=== PATIENT | male | born 1955 | race Caucasian/White ===

== ENCOUNTER 2016-10-10 19:16 | Emergency (ER) | payer OTHER ==
[~2016-10-10] VITALS: Ht 182.9 cm; Wt 102.2 kg
[~2016-10-10 19:16] MED LIST: ALBUTEROL SULF8.5 GM IH; ANORO ELLIPTA1 EACH IH; ASPIR-LOW81 MG PO; BISOPROLOL-HCT1 EAC2; CELEBREX200 MG PO; COLACE100 MG PO; DIOVAN80 MG PO; DOXYCYCLINE HY100 MG PO; DULERA 200 MCG/13 GM IH; DURAGESIC50 MCG TD; GLIMEPIRIDE1 MG PO; GLIPIZIDE5 MG PO; GLUCOPHAGE1000 MG PO; GLUCOPHAGE500 MG PO; INVOKANA100 MG PO; LEVAQUIN500 MG PO; LEVAQUIN750 MG PO; LORAZEPAM0.5 MG PO; MEDROL DOSEPAK4 MG PO; OXYCODONE-APAP1 EACH; PERCOCET 10/1 TABLET PO; PERCOCET 5/31 TABLET PO; PREDNISONE10 M1 PO; PREDNISONE50 MG PO; PROAIR HFA8.5 GM IH; SPIRIVA1 INHALATI IH; SYMBICORT60 INHALAT IH; VENTOLIN HFA18 GM IH; ZITHROMAX Z-PA250 MG PO; ZITHROMAX250 MG PO
[2016-10-10 20:06] LABS: HEMATOCRIT 38.5 % (38.0-50.0); MCH 32.2 PG (29.0-34.0); MCHC 34.3 G/DL (30.0-36.0); MCV 93.9 FL (86-99); MEAN PLAT.VOLUME 9.8 uM^3 (9.0-12.4); PLATELET COUNT 249 K/uL (156-360); RBC DIS.WIDTH-CV 13.3 % (11.8-14.6); RBC DIS.WIDTH-SD 45.9 % (39-53); WHITE BLOOD COUNT 15.3 K/uL (4.1-10.2)
[2016-10-10 20:14] LABS: CHLORIDE 106 mEq/L (99-109); POTASSIUM 4.2 mEq/L (3.7-5.4); SODIUM 141 mEq/L (136-147)
[2016-10-10 20:15] LABS: GLUCOSE 217 mg/dL (70-99)
[2016-10-10 20:17] LABS: ANION GAP 10 MEQ/L (2-14)
[2016-10-10 20:19] LABS: GFR ESTIMATE (CALCULATED) > 59 mL/min/
[2016-10-10 20:20] LABS: UREA NITROGEN (BUN) 19 mg/dL (9-23)
[2016-10-10] MEDS ORDERED: DOXYCYCLINE HY100 MG PO (21:23)
[2016-10-10 21:31] VITALS: BP 156/80
== END 2016-10-10 21:33 | disposition home or self-care (01) ==
LOC: EME 19:16
DX: J44.0 Chronic obstructive pulmonary disease with (acute) lower respiratory infection (principal); J18.9 Pneumonia, unspecified organism; J45.909 Unspecified asthma, uncomplicated; G89.29 Other chronic pain; E11.9 Type 2 diabetes mellitus without complications; I25.2 Old myocardial infarction; Z87.442 Personal history of urinary calculi; Z98.1 Arthrodesis status; F17.200 Nicotine dependence, unspecified, uncomplicated
CPT/HCPCS: 71020; 80048; 85027; 93005; 99281; 99283

== ENCOUNTER 2017-11-23 11:24 | Emergency (ER) | payer OTHER ==
[~2017-11-23] VITALS: Ht 182.9 cm; Wt 101.6 kg
[2017-11-23 13:25] LABS: HEMOGLOBIN 13.4 G/DL (12.5-16.6); MCH 33.1 PG (29.0-34.0); MCHC 34.4 G/DL (30.0-36.0); MCV 96.3 FL (86-99); PLATELET COUNT 295 K/uL (156-360); RBC DIS.WIDTH-SD 46.3 % (39-53); RED BLOOD COUNT 4.05 M/uL (4.00-5.50); WHITE BLOOD COUNT 8.7 K/uL (4.1-10.2)
[2017-11-23 13:37] LABS: CHLORIDE 105 mEq/L (99-109); POTASSIUM 4.6 mEq/L (3.7-5.4); SODIUM 140 mEq/L (136-147)
[2017-11-23 13:39] LABS: GLUCOSE 173 mg/dL (70-99)
[2017-11-23 13:43] LABS: CREATININE 0.8 mg/dL (0.6-1.3); GFR ESTIMATE (CALCULATED) > 59 mL/min/ (58.99-99999)
[2017-11-23 13:44] LABS: UREA NITROGEN (BUN) 21 mg/dL (9-23)
[2017-11-23] MEDS ORDERED: PREDNISONE20 MG PO (14:46)
[2017-11-23] MEDS ORDERED: PREDNISONE50 MG PO (14:48)
[2017-11-23 15:03] VITALS: BP 143/96
== END 2017-11-23 15:06 | disposition home or self-care (01) ==
LOC: EME 11:24
PROVIDERS: Emergency Medicine
DX: J44.1 Chronic obstructive pulmonary disease with (acute) exacerbation (principal); R00.1 Bradycardia, unspecified; I45.10 Unspecified right bundle-branch block; E11.9 Type 2 diabetes mellitus without complications; I25.2 Old myocardial infarction; F17.200 Nicotine dependence, unspecified, uncomplicated; Z79.891 Long term (current) use of opiate analgesic; Z79.84 Long term (current) use of oral hypoglycemic drugs; Z87.01 Personal history of pneumonia (recurrent); Z87.442 Personal history of urinary calculi; Z98.890 Other specified postprocedural states; Z88.0 Allergy status to penicillin; Z88.6 Allergy status to analgesic agent
CPT/HCPCS: 71045; 80048; 85027; 87040; 93005; 99281; 99284

== ENCOUNTER 2018-03-20 18:52 | Emergency (ER) | payer OTHER ==
[~2018-03-20] VITALS: Ht 182.9 cm; Wt 102.3 kg
[~2018-03-20 18:52] MED LIST changes: +PREDNISONE20 MG PO
[2018-03-20 19:36] LABS: HEMATOCRIT 37.1 % (38.0-50.0); HEMOGLOBIN 12.8 G/DL (12.5-16.6); MCH 32.5 PG (29.0-34.0); MCHC 34.5 G/DL (30.0-36.0); MCV 94.2 FL (86-99); PLATELET COUNT 224 K/uL (156-360); RBC DIS.WIDTH-CV 13.4 % (11.8-14.6); RBC DIS.WIDTH-SD 46.7 % (39-53); RED BLOOD COUNT 3.94 M/uL (4.00-5.50)
[2018-03-20 19:48] LABS: CHLORIDE 108 mEq/L (99-109); POTASSIUM 3.9 mEq/L (3.7-5.4); SODIUM 143 mEq/L (136-147)
[2018-03-20 19:50] LABS: GLUCOSE 82 mg/dL (70-99)
[2018-03-20 19:54] LABS: CREATININE 1.1 mg/dL (0.6-1.3); GFR ESTIMATE (CALCULATED) > 59 mL/min/ (58.99-99999)
[2018-03-20 19:55] LABS: UREA NITROGEN (BUN) 20 mg/dL (9-23)
[2018-03-20 19:57] LABS: TROP-I INTERPRETATION NEGATIVE; TROPONIN-I 0.02 ng/mL (0.0-0.30)
[2018-03-20 22:30] VITALS: BP 145/86
== END 2018-03-20 22:30 | disposition home or self-care (01) ==
LOC: EME 18:52
DX: R07.9 Chest pain, unspecified (principal); M79.89 Other specified soft tissue disorders; R60.0 Localized edema; F17.200 Nicotine dependence, unspecified, uncomplicated; J44.9 Chronic obstructive pulmonary disease, unspecified; I25.2 Old myocardial infarction; E11.9 Type 2 diabetes mellitus without complications; Z79.84 Long term (current) use of oral hypoglycemic drugs; Z88.0 Allergy status to penicillin; I45.10 Unspecified right bundle-branch block
CPT/HCPCS: 71046; 80048; 84484; 85027; 93005; 93971; 99281; 99284